=== PATIENT | male | born 1960 | race Caucasian/White ===

== ENCOUNTER 2022-07-27 15:39 | Emergency (ER) | payer MEDICAID ==
[~2022-07-27] VITALS: Ht 165.1 cm; Wt 105.0 kg
[~2022-07-27 15:39] MED LIST: FERR-71 MT
[2022-07-27 21:07] LABS: BASOPHILS % 0.6 % (0.0-2.0); EOSINOPHILS % 2.4 % (0.0-5.0); HEMATOCRIT. 42.8 % (42.0-52.0); HEMOGLOBIN. 13.4 g/dL (14.0-18.0); LYMPHOCYTES % 39.6 % (20.0-50.0); MEAN CORPUSCULAR HEMOGLOBIN 21.5 pg (28.0-32.0); MEAN CORPUSCULAR VOLUME 68.9 fL (80.0-94.0); MEAN PLATELET VOLUME 10.4 fl (7.4-10.4); MONOCYTES % 6.1 % (2.0-8.0); NEUTROPHILS % 51.3 % (40.0-76.0); PLATELET 115 x1000/uL (130-400); RED BLOOD CELL COUNT 6.22 mill/uL (4.7-6.1); RED CELL DISTRIBUTION WIDTH 16.2 % (11.6-14.6)
[2022-07-27 21:17] LABS: INR 1.1; PROTHROMBIN TIME 11.4 sec (9.6-11.0)
[2022-07-27 21:21] LABS: CHLORIDE 103 mEq/L (98-107)
[2022-07-27 22:08] LABS: PLATELET ESTIMATE DECREASED
[2022-07-27] MEDS ORDERED: IOHEXOL-300 100 ML BOTTLE ONE (22:43)
[2022-07-27 23:05] VITALS: BP 130/70
== END 2022-07-27 23:10 | disposition home or self-care (01) ==
LOC: ER 15:39
DX: R31.9 Hematuria, unspecified (principal); N32.9 Bladder disorder, unspecified; F17.210 Nicotine dependence, cigarettes, uncomplicated; Z71.6 Tobacco abuse counseling
CPT/HCPCS: 36415; 74177; 76770; 80053; 83690; 85025; 85610; 99285; 99406; Q9967; Z7610